=== PATIENT | female | born 1995 | race Caucasian/White ===

== ENCOUNTER 2017-07-27 17:34 | Emergency (ER) | payer OTHER ==
[~2017-07-27] VITALS: Ht 170.2 cm; Wt 83.2 kg
[2017-07-27 17:46] VITALS: TEMP 36.7; Ht 170.2 cm; Wt 83.2 kg
[2017-07-27 19:05] VITALS: O2SAT 100
[2017-07-27 19:40] LABS: BASO % 0.4 %; BASO ABS # 0.03 K/uL (0-0.2); EOS % 1.1 %; EOS ABS # 0.08 K/uL (0-0.5); HEMATOCRIT 42.1 % (37-47); HEMOGLOBIN 14.8 g/dL (12.0-16.0); IG# 0.02 K/uL (0.00-0.02); LYMPH % 25.6 %; LYMPH ABS # 1.91 K/uL (1.2-3.4); MEAN CELL VOLUME 91.3 fL (80-100); MEAN CORPUSCULAR HEMOGLOBIN 32.1 pg (25-34); MEAN CORPUSCULAR HGB CONC 35.2 g/dl (32-36); MEAN PLATELET VOLUME 10.2 fL (7.4-10.4); MONO % 10.3 %; MONO ABS # 0.77 K/uL (0.11-0.59); NEUT % 62.3 %; NEUT ABS # 4.64 K/uL (1.4-6.5); PLATELET COUNT 216 K/uL (130-400); RED CELL DISTRIBUTION WIDTH CV 12.5 % (11.5-14.5); WHITE BLOOD COUNT 7.45 K/uL (4.8-10.8)
[2017-07-27] MEDS ORDERED: ESCI10TA17 PO (19:44)
[2017-07-27 19:50] LABS: INR 1.1 (0.9-1.1)
[2017-07-27 20:03] LABS: ALBUMIN 4.3 gm/dl (3.4-5.0); ALT/SGPT 89 U/L (12-78); BLOOD UREA NITROGEN 13 mg/dl (7-18); CALCIUM 9.8 mg/dl (8.5-10.1); CARBON DIOXIDE 26 mmol/L (21-32); CREATININE 0.71 mg/dl (0.60-1.20); GLUCOSE 87 mg/dl (70-99); POTASSIUM 3.5 mmol/L (3.5-5.1); SODIUM 134 mmol/L (136-145)
[2017-07-27 20:12] LABS: ALKALINE PHOSPHATASE 111 U/L (45-117); AST/SGOT 57 U/L (15-37); CKMB < 0.5 ng/ml (0.5-3.6); TOTAL PROTEIN 8.7 gm/dl (6.4-8.2)
--- NOTE | 2017-07-27 20:48 | EMERGENCY ROOM VISIT NOTE ---
History First contact with patient: 18:48 Chief Complaint: CARDIAC ASSESSMENT Stated Complaint: HEART PALPITATIONS Nursing Triage Summary: Pt. reports feeling of heart palpitations for last few days and it worsened over night into today. Denies shortness of breath, but states when it happens she feels like she has to take a deep breath. Also denies chest pain. Denies cardiac history. History of Present Illness The patient is a 22 year old female who presents to the Emergency Room via private vehicle accompanied by friend with complaints of "heart palpitations". The patient states that this past she began with heart palpitations while at rest. She states as though there is just an odd sensation in her chest and it prompted her to take a deep breath. It lasted only a few minutes. She stated it occurred on Monday and again last night. She states that when she tried to fall asleep she felt a fluttering sensation in her chest. It is also followed by the sensation of having to take a deep breath but there is no shortness of breath. She states that she does have a history of anxiety, but has never been experiencing sensations quite like this. She states that the most recent episode was today at 3 PM. This prompted her arrival here to the emergency department. She denies any recent fracture, long travel, hemoptysis, hormone use, chest pain or shortness of breath. There is a family history of arrhythmias. She does note alcohol use recently, but not excessive. Review of Systems A complete 10-point Review of Systems was discussed with the patient, with pertinent positives and negatives listed in the History of Present Illness. All remaining Review of Systems questions can be considered negative unless otherwise specified. Past Medical/Surgical History Anxiety Family History Arrhythmias Social History Smoking Status: Never Smoker Pt. is a [employer] Student Current/Historical Medications Scheduled Escitalopram (Lexapro), 15 MG PO DAILY Physical Exam Vital Signs Date Time Temp Pulse Resp B/P (MAP) Pulse Ox O2 Delivery O2 Flow Rate FiO2 07/27/17 20:59 72 16 119/69 99 Room Air 07/27/17 20:17 68 22 119/64 99 Room Air 07/27/17 19:25 75 20 118/73 100 Room Air 07/27/17 19:14 99 07/27/17 19:05 100 Room Air 07/27/17 19:05 100 Room Air 07/27/17 17:46 36.7 91 16 143/85 99 Room Air Physical Exam VITAL SIGNS - Vital signs and nursing notes were reviewed. Stable. GENERAL - 22-year-old female appearing her stated age who is in no acute distress. Communicates well with provider and answers questions appropriately. SKIN - Without rashes. HEAD - NC/AT. EYES - Sclera anicteric. EARS - No deformities of external structures noted on gross examination bilaterally. NOSE - Midline and without cyanosis. No epistaxis or purulent drainage noted. MOUTH/OROPHARYNX - Without perioral cyanosis. LUNGS - Chest wall symmetric without accessory muscle use, intercostals retractions, or central cyanosis. Normal vesicular breath sounds CTA B/L. No wheezes, rales, or rhonchi appreciated. CARDIAC - RRR with S1/S2. No murmur, rubs, or gallops appreciated. Medical Decision & Procedures Laboratory Results 07/27/17 19:23 Red Blood Count 4.61, Mean Corpuscular Volume 91.3, Mean Corpuscular Hemoglobin 32.1, Mean Corpuscular Hemoglobin Concent 35.2, Mean Platelet Volume 10.2, Neutrophils (%) (Auto) 62.3, Lymphocytes (%) (Auto) 25.6, Monocytes (%) (Auto) 10.3, Eosinophils (%) (Auto) 1.1, Basophils (%) (Auto) 0.4, Neutrophils # (Auto ) 4.64, Lymphocytes # (Auto) 1.91, Monocytes # (Auto) 0.77, Eosinophils # (Auto ) 0.08, Basophils # (Auto) 0.03 07/27/17 19:23 Test 07/27/17 19:23 White Blood Count 7.45 K/uL (4.8-10.8) Red Blood Count 4.61 M/uL (4.2-5.4) Hemoglobin 14.8 g/dL (12.0-16.0) Hematocrit 42.1 % (37-47) Mean Corpuscular Volume 91.3 fL (80-100) Mean Corpuscular Hemoglobin 32.1 pg (25-34) Mean Corpuscular Hemoglobin Concent 35.2 g/dl (32-36) Platelet Count 216 K/uL (130-400) Mean Platelet Volume 10.2 fL (7.4-10.4) Neutrophils (%) (Auto) 62.3 % Lymphocytes (%) (Auto) 25.6 % Monocytes (%) (Auto) 10.3 % Eosinophils (%) (Auto) 1.1 % Basophils (%) (Auto) 0.4 % Neutrophils # (Auto) 4.64 K/uL (1.4-6.5) Lymphocytes # (Auto) 1.91 K/uL (1.2-3.4) Monocytes # (Auto) 0.77 K/uL (0.11-0.59) Eosinophils # (Auto) 0.08 K/uL (0-0.5) Basophils # (Auto) 0.03 K/uL (0-0.2) RDW Standard Deviation 42.0 fL (36.4-46.3) RDW Coefficient of Variation 12.5 % (11.5-14.5) Immature Granulocyte % (Auto) 0.3 % Immature Granulocyte # (Auto) 0.02 K/uL (0.00-0.02) Prothrombin Time 11.5 SECONDS (9.0-12.0) Prothromb Time International Ratio 1.1 (0.9-1.1) Activated Partial Thromboplast Time 28.0 SECONDS (21.0-31.0) Partial Thromboplastin Ratio 1.1 Anion Gap 7.0 mmol/L (3-11) Est Creatinine Clear Calc Drug Dose 139.0 ml/min Estimated GFR () 141.1 Estimated GFR (Non- 121.8 BUN/Creatinine Ratio 17.7 (10-20) Calcium Level 9.8 mg/dl (8.5-10.1) Magnesium Level 2.0 mg/dl (1.8-2.4) Total Bilirubin 0.3 mg/dl (0.2-1) Aspartate Amino Transf (AST/SGOT) 57 U/L (15-37) Alanine Aminotransferase (ALT/SGPT) 89 U/L (12-78) Alkaline Phosphatase 111 U/L (45-117) Total Creatine Kinase 114 U/L (26-192) Creatine Kinase MB < 0.5 ng/ml (0.5-3.6) Creatine Kinase MB Ratio (0-3.0) Troponin I < 0.015 ng/ml (0-0.045) C-Reactive Protein 0.57 mg/dl (0-0.29) Total Protein 8.7 gm/dl (6.4-8.2) Albumin 4.3 gm/dl (3.4-5.0) Globulin 4.4 gm/dl (2.5-4.0) Albumin/Globulin Ratio 1.0 (0.9-2) Thyroid Stimulating Hormone (TSH) 1.440 uIu/ml (0.300-4.500) Lyme Disease IgG Antibody NEG (NEG) Lyme Disease IgM Antibody NEG (NEG) Medical Decision Patient was seen and evaluated as above. She presents to us today with subjective complaints of heart palpitations. She is hemodynamically stable, nontoxic and well on exam. She is not tachycardic and is saturating well on room air 99% upon her presentation here to the emergency department. Decision was made to obtain IV access, and the above workup was performed. She is PERC negative, and I suspect that the chance of this being a pulmonary embolism is extremely low. I discussed been versus risks risk of obtaining a d-dimer, and the decision was made to refrain. In regard to the patient's blood work today, there is no leukocytosis or anemia. Coag normal. Metabolic panel reveals sodium low at 134, AST high at 57, ALT high at 89, C-reactive protein minimally elevated at 0.57, and TSH normal. Lyme disease negative. X-ray was offered, and decision was made to refrain from imaging. I suspect she is likely experiencing either PVCs, or could be potential underlying anxiety. However, given the liver elevation, I did discuss alcohol use. She notes that it is not excessive. I do suspect that A. fib is less likely, however did discuss the possibility secondary to alcohol use. I believe the patient could benefit from follow-up with [facility] with potential referral to cardiology in the event that this persists she may require an event monitor. I did inform her that I do not suspect that there is any emergent cause to her presentation here today. Her EKG reveals per my interpretation normal sinus rhythm with sinus arrhythmia. There is T-wave inversion in lead 3, V1, questionably in V4 as well but no evidence of CO. 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 She was given copies of her labs today as well as her EKG. She seemed happy with the workup today. She is to call [facility] to schedule follow-up with potential referral to cardiology. I do believe that outpatient management is warranted. Case was discussed also with the attending physician who personally evaluated the patient. The patient was educated upon management, educated upon worrisome symptoms which to return, had questions about discharge , and was discharged home in good condition. In the evaluation and treatment of this patient the following differential diagnoses were entertained: CO, PE, peritonitis, costochondritis, V. fib, cardiac arrhythmia, alcohol induced arrhythmia, among others. Impression Primary Impression: Heart palpitations Departure Information Dispostion Home / Self-Care Condition GOOD Referrals [facility] (PCP) Beka Perales MD Patient Instructions My [facility] Additional Instructions You were seen in the emergency department for palpitations. At this time there is no emergent cause found. We do recommend following up with [facility] services with potential referral to cardiology. You may require an event monitor. Please call your family doctor to schedule follow-up to repeat your liver function tests. Please return with any new/concerning symptoms. Thank you for your time.
--- NOTE | 2017-07-27 20:48 | EMERGENCY ROOM VISIT NOTE ---
ED Visit Note First contact with patient: 18:48 The patient was seen and examined with Mati Lawson PA-C. I agree with the history, physical and findings. Please see the note for disposition and details. The patient was referred for repeat LFTs and she was also referred to cardiology for outpatient monitoring.I gave my usual and customary discussion regarding this issue.
[2017-07-27 20:59] VITALS: BP 119/69; PULSE 72; O2SAT 99
== END 2017-07-27 21:15 | disposition home or self-care (01) ==
LOC: C.EDB 17:35 → C.EDA 21:15
DX: R00.2 Palpitations (principal); R74.0 Nonspecific elevation of levels of transaminase and lactic acid dehydrogenase [LDH]; E87.1 Hypo-osmolality and hyponatremia; R94.31 Abnormal electrocardiogram [ECG] [EKG]; F41.9 Anxiety disorder, unspecified; Z82.49 Family history of ischemic heart disease and other diseases of the circulatory system